=== PATIENT | male | born 1950 | race African-American/Black ===

== ENCOUNTER 2020-12-31 04:52 | Day surgery (SDC) | payer OTHER ==
[2020-12-30 11:22] VITALS: BMI 30.4
[2020-12-31] MEDS ORDERED: POVIDONE-IODINE OINTMENT 10% - 28.4 GM TUBE ONE (13:39)
[2020-12-31] MEDS ORDERED: LIDOCAINE HCL 1%, 10 MG/ML (20ML VIAL) ONE (13:39)
[2020-12-31] MEDS ORDERED: PAPAVERINE HCL 30 MG/1 ML 10 ML VIAL NR ONE (13:39)
[2020-12-31 14:43] VITALS: BP 144/63; PULSE 72; TEMP 98.7
== END 2020-12-31 15:10 | disposition home or self-care (01) ==
LOC: JASU-SURG 04:52
PROVIDERS: ATTEND Surgery
DX: Z53.8 Procedure and treatment not carried out for other reasons (principal)
CPT/HCPCS: 36415; 82962; 84132

== ENCOUNTER 2021-01-12 04:45 | Day surgery (SDC) | payer OTHER ==
[2021-01-10 15:23] VITALS: BMI 30.4
[2021-01-12] MEDS ORDERED: ROPIVACAINE HCL 0.5% 30ML VIAL ONE (08:44)
[2021-01-12] MEDS ORDERED: MIDAZOLAM HCL 2 MG/2 ML SINGLE DOSE VIAL ONE ×2 (08:48)
[2021-01-12 08:52] LABS: HEMATOCRIT 33.5 % (35.4-49); HEMOGLOBIN 11.4 GM/dL (11.7-16.9); MCH 30.9 pg (25.7-33.7); MEAN PLT VOLUME 7.8 fl (7.5-11.1); PLATELET COUNT 341 10^3/uL (134-434); RBC 3.68 M/mm3 (4.00-5.60); RDW 14.8 % (11.9-15.9); WHITE BLOOD COUNT 6.3 K/mm3 (4.0-10.0)
[2021-01-12 09:02] LABS: CHLORIDE 96 mmol/L (98-107); SODIUM 136 mmol/L (136-145)
[2021-01-12 09:04] LABS: CALCIUM 9.5 mg/dL (8.5-10.1)
[2021-01-12 09:05] LABS: ALBUMIN 3.3 g/dl (3.4-5.0); ANION GAP 11 MMOL/L (8-16); BLOOD UREA NITROGEN 60.8 mg/dL (7-18); CO2 29 mmol/L (21-32); GLUCOSE,RANDOM 213 mg/dL (74-106)
[2021-01-12 09:08] LABS: SGOT/AST 7 U/L (15-37); SGPT/ALT 11 U/L (13-61)
[2021-01-12 09:10] LABS: BILIRUBIN,TOTAL 0.3 mg/dL (0.2-1); TOT PROT 7.8 g/dl (6.4-8.2)
[2021-01-12 09:11] LABS: ALK PHOS 105 U/L (45-117)
[2021-01-12 09:13] LABS: INR 1.04 (0.83-1.09); PROTHROMBIN TIME (PATIENT) 11.6 SEC (9.7-13.0)
[2021-01-12 09:14] LABS: CREATININE 7.7 mg/dL (0.55-1.3)
[2021-01-12] MEDS ORDERED: PROPOFOL 20 ML ONE (09:15)
[2021-01-12] MEDS ORDERED: PAPAVERINE HCL 30 MG/1 ML 10 ML VIAL NR ONE (10:21)
[2021-01-12] MEDS ORDERED: HEPARIN NA (PORCINE) 5,000 UNITS/ML 1ML VIAL ONE (10:21)
[2021-01-12] MEDS ORDERED: LIDOCAINE HCL 1%, 10 MG/ML (20ML VIAL) ONE (10:21)
[2021-01-12] MEDS ORDERED: POVIDONE-IODINE OINTMENT 10% - 28.4 GM TUBE ONE (10:22)
[2021-01-12] MEDS ORDERED: hydrALAZINE HCL 20 MG/ML VIAL ONE (11:07)
[2021-01-12] MEDS ORDERED: ceFAZolin SODIUM 1 GM VIAL IVPB ONE (11:10)
[2021-01-12] MEDS ORDERED: HEPARIN NA (PORCINE) 5,000 UNITS/ML 1ML VIAL SQ ONE (11:11)
[2021-01-12 12:38] VITALS: TEMP 97.5
[2021-01-12 15:02] VITALS: BP 124/74; PULSE 74
== END 2021-01-12 15:00 | disposition home or self-care (01) ==
LOC: JASU-SURG 04:45
PROVIDERS: ATTEND Surgery
PROC: 031A0ZF Bypass Left Ulnar Artery to Lower Arm Vein, Open Approach (ICD-10-PCS; principal; 2021-01-12 10:00)
DX: I12.0 Hypertensive chronic kidney disease with stage 5 chronic kidney disease or end stage renal disease (principal); E11.22 Type 2 diabetes mellitus with diabetic chronic kidney disease; N18.6 End stage renal disease; Z99.2 Dependence on renal dialysis
CPT/HCPCS: 36415; 80053; 82962; 85027; 85610; 94760; J1644